=== PATIENT | female | born 1950 | race Caucasian/White ===

== ENCOUNTER 2017-04-22 13:54 | Emergency (ER) | payer OTHER, MEDICAID ==
--- NOTE | 2017-04-22 14:31 | EDPHY ---
H & P Stated Complaint: sent by pcp for prbc infusion -anemia, fatigue Time Seen by Provider: 04/22/17 14:31 - Medical/Surgical History Hx Asthma: No Hx Chronic Respiratory Disease: No Hx Diabetes: No Hx Cardiac Disease: No Hx Renal Disease: No Hx Cirrhosis: No Hx Alcoholism: No Hx HIV/AIDS: No Hx Splenectomy or Spleen Trauma: No Other PMH: Norma, x2, gastric bypass, anemia, tonsillectomy - Social History Smoking Status: Former smoker Constitutional: Initial Vital Signs Temperature (C) 37.0 C 04/22/17 13:58 Heart Rate 91 04/22/17 13:58 Respiratory Rate 16 04/22/17 13:58 Blood Pressure 137/74 H 04/22/17 13:58 O2 Sat (%) 95 04/22/17 13:58 O2 Delivery Mode Room Air Allergies/Adverse Reactions: statins Allergy (Intermediate, Uncoded 01/17/16 20:04) Other-Enter Comments HORMONES Allergy (Uncoded 01/17/16 20:04) Home Medications: Medication Instructions Recorded traZODone [traZODONE 50MG (*)] 50 - 100 mg PO HS PRN 04/17/14 Diazepam [Valium 10 MG (*)] 10 mg PO DAILY PRN 01/04/16 Furosemide [Lasix 20 MG (*)] 20 mg PO DAILY PRN 01/04/16 Sertraline HCl [Zoloft 100mg (*)] 200 mg PO DAILY 01/04/16 fentaNYL [Duragesic 100 MCG Patch 100 mcg TD Q72H 01/04/16 (*)] Iron/Vit C/Docusate [Steve-Sequels 1 each PO BID #0 tab.er 01/06/16 65 mg (*)] HYDROmorphone HCL [Dilaudid 4 mg 4 mg PO Q6H PRN #10 tab 01/18/16 (*)] Medical Decision Making ED Course/Re-evaluation: CHIEF COMPLAINT: HISTORY OF PRESENT ILLNESS: must have 4 elements: Location, Quality, Severity , Duration, Timing, Context, Modifying Factors, Associated Signs and Symptoms REVIEW OF SYSTEMS: A 10 point review of systems was performed and is negative with the exception of the elements mentioned in the history of present illness. PHYSICAL EXAM: HR, BP, O2 Sat, RR. Temp noted General Appearance: Alert, well hydrated, appropriate, and non-toxic appearing. Head: Atraumatic without scalp tenderness or obvious injury Eyes: Pupils equal, round, reactive to light and accommodation, EOMI, no trauma , no injection. Ears: Clear bilaterally, no perforation, normal landmarks Nose: Atraumatic, no rhinorrhea, clear. Throat: There is no erythema or exudates, no lesions, normal tonsils, mucus membranes moist. Neck: Supple, 2+ carotid upstroke, nontender, no lymphadenopathy. Respiratory: No retractions, no distress, no wheezes, and no accessory muscle use. Lungs are clear to auscultation bilaterally. Cardiovascular: Regular rate and rhythm, no murmurs, rubs, or gallops. Bilateral carotid, radial, dorsalis pedis, and posterior tibial pulses intact. Good capillary refill all extremities. Gastrointestinal: Abdomen is soft, nontender, non-distended, no masses, no rebound, no guarding, no peritoneal signs. Musculoskeletal: Normal active ROM of all extremities, atraumatic. Neurological: Alert, appropriate, and interactive. The patient has normal DTRs and non-focal cranial nerves, motor, sensory, and cerebellar exam. Skin: No rashes, good turgor, no nodules on palpation. Past medical history: Past surgical history: Family history: Social history: DIAGNOSTICS/PROCEDURES/CRITICAL CARE TIME: DIFFERENTIAL DIAGNOSIS: MEDICAL DECISION MAKING: Departure - Departure Referrals: Monalisa Foreman MD [Primary Care Provider] - As per Instructions Report Scribed for: Ren Mello Report Scribed by: Katherine Quan Date of Report: 04/22/17 Time of Report: 14:39
--- NOTE | 2017-04-22 15:10 | EDPHY ---
H & P Time Seen by Provider: 04/22/17 14:31 HPI/ROS: Chief complaint. Needs transfusion HPI. 66-year-old female sent by her physician at [facility] for transfusion. The patient has chronic anemia. Last transfusion was in 2014. She has had extensive workup including colonoscopy that apparently show she is not losing blood but just not producing blood. She complains of generalized weakness, shortness of breath with exertion. Also dizzy on walking. Denies chest pain. No abdominal pain no occasionally she has some left upper quadrant abdominal discomfort. Apparently labs at [facility] seen a today showed a low hematocrit. However her blood work is not in our lab in she did not bring any lab work with her. ROS Constitutional. Generalized weakness Eyes. no problems with vision ENT. no sore throat, no nasal drainage Cardiovascular. no chest pain Respiratory. Dyspnea on exertion Abdominal. no abdominal pain, no nausea/vomiting, no diarrhea . no problems urinating MS. no calf pain/swelling, no neck/back pain, no joint pain Skin. no rash Lymph. no swollen glands Neuro. Difficulty walking secondary to fatigue Past Medical/Surgical History: Past medical history significant for cholecystectomy, , gastric bypass , chronic anemia, tonsillectomy Social History: Single, nonsmoker, no alcohol Smoking Status: Former smoker Physical Exam: General Appearance: Alert well-developed female mild distress vital signs are stable Eyes: Pupils equal and round no pallor or injection. ENT, Mouth: Mucous membranes are moist. Respiratory: There are no retractions, lungs are clear to auscultation. Cardiovascular: Regular rate and rhythm. Gastrointestinal: Abdomen is soft and nontender, no masses, bowel sounds normal. Neurological: Awake and alert, sensory and motor exams grossly normal. Skin: Warm and dry, no rashes. Musculoskeletal: Neck is supple nontender. Extremities symmetrical, full range of motion. Psychiatric: Patient is oriented X 3, there is no agitation. Constitutional: Initial Vital Signs Temperature (C) 37.0 C 04/22/17 13:58 Heart Rate 91 04/22/17 13:58 Respiratory Rate 16 04/22/17 13:58 Blood Pressure 137/74 H 04/22/17 13:58 O2 Sat (%) 95 04/22/17 13:58 O2 Delivery Mode Room Air Allergies/Adverse Reactions: statins Allergy (Intermediate, Uncoded 01/17/16 20:04) Other-Enter Comments HORMONES Allergy (Uncoded 01/17/16 20:04) Home Medications: Medication Instructions Recorded traZODone [traZODONE 50MG (*)] 50 - 100 mg PO HS PRN 04/17/14 Diazepam [Valium 10 MG (*)] 10 mg PO DAILY PRN 01/04/16 Furosemide [Lasix 20 MG (*)] 20 mg PO DAILY PRN 01/04/16 Sertraline HCl [Zoloft 100mg (*)] 200 mg PO DAILY 01/04/16 fentaNYL [Duragesic 100 MCG Patch 100 mcg TD Q72H 01/04/16 (*)] Iron/Vit C/Docusate [Steve-Sequels 1 each PO BID #0 tab.er 01/06/16 65 mg (*)] HYDROmorphone HCL [Dilaudid 4 mg 4 mg PO Q6H PRN #10 tab 01/18/16 (*)] Medical Decision Making - Diagnostics EKG Interpretation: EKG interpreted by shows normal sinus rhythm normal interval and axis. QRS is normal. There is no significant ST elevation or depression. There is no arrhythmia. The rate is 75. No significant change from previous EKG April 2014 Imaging Results: Imaging Impressions Chest X-Ray 04/22/17 15:36 Impression: Negative portable chest. Chest/Thorax CTA 04/22/17 16:48 Impression: 1. No pulmonary embolism to the segmental level. 2. Cardiomegaly. 3. Additional findings, as above. Dr. Otoole discussed these findings by telephone with TAYE SOTELO on 2017 at 17:22 hours. Chest x-ray interpreted by me is normal CT angiogram chest shows no evidence of pulmonary embolus. Reviewed by me and discussed with Dr. Otoole Procedures: IV normal saline ED Course/Re-evaluation: I consulted discussed case with Dr. Foreman and we discussed blood level and hematocrit of 30.1. She agrees the patient does not require blood transfusion at this point. 4:45 p.m. patient is re-evaluated stable. She and I discussed laboratory evaluation elevated D-dimer. Indications are shortness of breath especially with exertion, normal chest x-ray, elevated D-dimer. She agrees to CT angiogram chest Re-evaluation again at 6:00 p.m.. Patient is stable. She and I discussed CT results. We discussed criteria for return treatment plan and importance of follow-up and further evaluation. She expresses understanding and agreement Differential Diagnosis: Patient presented to the emergency department being sent to the emergency department for admission for blood transfusion. She had no lab work with her and repeat blood work in the emergency department showed a hematocrit of 30.1 not needing transfusion. The patient then tells me she has been shortness of breath with exertion and some dizziness with exertion. Workup included cardiac and pulmonary evaluation. She had an elevated D-dimer though a normal chest x- ray. CT scan shows no evidence for pulmonary embolus. Source of dyspnea on exertion is not identified. Her vital signs are stable. I think that she can be safely treated as an outpatient. - Data Points Laboratory Results: Laboratory Results 04/22/17 14:41 04/22/17 14:41 04/22/17 04/22/17 04/22/17 16:07 16:07 14:41 WBC RBC Hgb Hct MCV MCH MCHC RDW Plt Count MPV Neut % (Auto) Lymph % (Auto) [place] % (Auto) Eos % (Auto) Baso % (Auto) Nucleat RBC Rel Count Absolute Neuts (auto) Absolute Lymphs (auto) Absolute Monos (auto) Absolute Eos (auto) Absolute Basos (auto) Absolute Nucleated RBC Immature Gran % Immature Gran # Platelet Estimate Polychromasia Hypochromasia Microcytic Cells Tear Drop Cells Elliptocytes D-Dimer 0.92 ug/mLFEU H ug/mLFEU (0.00-0.50) Sodium Potassium Chloride Carbon Dioxide Anion Gap BUN Creatinine Estimated GFR Glucose Calcium Troponin I < 0.012 ng/mL ng/mL (0.000-0.034) NT-Pro-B Natriuret Pep 139 pg/mL H pg/mL (0-125) Patient ABO/Rh A POSITIVE Antibody Screen NEGATIVE 04/22/17 04/22/17 14:41 14:41 WBC 3.70 10^3/uL L 10^3/uL (3.80-9.50) RBC 3.92 10^6/uL L 10^6/uL (4.18-5.33) Hgb 8.5 g/dL L g/dL (12.6-16.3) Hct 30.1 % L % (38.0-47.0) MCV 76.8 fL L fL (81.5-99.8) MCH 21.7 pg L pg (27.9-34.1) MCHC 28.2 g/dL L g/dL (32.4-36.7) RDW 18.5 % H % (11.5-15.2) Plt Count 304 10^3/uL 10^3/uL (150-400) MPV 10.6 fL fL (8.7-11.7) Neut % (Auto) 51.9 % % (39.3-74.2) Lymph % (Auto) 40.5 % % (15.0-45.0) [place] % (Auto) 4.9 % % (4.5-13.0) Eos % (Auto) 1.6 % % (0.6-7.6) Baso % (Auto) 0.8 % % (0.3-1.7) Nucleat RBC Rel Count 0.0 % % (0.0-0.2) Absolute Neuts (auto) 1.92 10^3/uL 10^3/uL (1.70-6.50) Absolute Lymphs (auto) 1.50 10^3/uL 10^3/uL (1.00-3.00) Absolute Monos (auto) 0.18 10^3/uL L 10^3/uL (0.30-0.80) Absolute Eos (auto) 0.06 10^3/uL 10^3/uL (0.03-0.40) Absolute Basos (auto) 0.03 10^3/uL 10^3/uL (0.02-0.10) Absolute Nucleated RBC 0.00 10^3/uL 10^3/uL (0-0.01) Immature Gran % 0.3 % % (0.0-1.1) Immature Gran # 0.01 10^3/uL 10^3/uL (0.00-0.10) Platelet Estimate ADEQUATE (ADEQ) Polychromasia 1+ H Hypochromasia 1+ H Microcytic Cells 1+ H Tear Drop Cells 1+ H Elliptocytes 1+ H D-Dimer Sodium 141 mEq/L mEq/L (135-145) Potassium 4.0 mEq/L mEq/L (3.5-5.2) Chloride 106 mEq/L mEq/L (97-110) Carbon Dioxide 21 mEq/l L mEq/l (22-31) Anion Gap 14 mEq/L mEq/L (8-16) BUN 14 mg/dL mg/dL (7-23) Creatinine 0.9 mg/dL mg/dL (0.6-1.0) Estimated GFR > 60 Glucose 109 mg/dL H mg/dL (70-100) Calcium 9.5 mg/dL mg/dL (8.5-10.4) Troponin I NT-Pro-B Natriuret Pep Patient ABO/Rh Antibody Screen Medications Given: Discontinued Medications Sodium Chloride (Ns) 500 mls @ 1,000 mls/hr IV EDNOW ONE PRN Reason: Protocol Stop: 04/22/17 17:16 Last Admin: 04/22/17 17:26 Dose: 500 mls Departure - Departure Disposition: Home, Routine, Self-Care Clinical Impression: Anemia Qualifiers: Anemia type: unspecified type Qualified Code(s): D64.9 - Anemia, unspecified Condition: Good Instructions: Pancreatitis (ED), Anemia (ED) Additional Instructions: Continue your regular medications. Return for worsening symptoms. Call Dr. Foreman tomorrow to arrange follow-up and further evaluation. Referrals: Monalisa Foreman MD [Primary Care Provider] - 2-3 days, call for appt.
[2017-04-22 15:44] LABS: PLATELET COUNT 304 10^3/uL (150-400)
[2017-04-22 16:07] VITALS: RESP 15; O2SAT 97
--- NOTE | 2017-04-22 16:17 | CPEKG ---
Heart Rate: 75 RR Interval: 800 P-R Interval: 172 QRSD Interval: 78 QT Interval: 396 QTC Interval: 443 P [place]: 60 QRS [place]: 36 T Wave [place]: 39 EKG Severity - BORDERLINE ECG - EKG Impression: SINUS RHYTHM EKG Impression: CONSIDER ANTERIOR INFARCT Electronically Signed By: Teofilo Culver 22-Apr-2017 17:03:39
[2017-04-22] MEDS ORDERED: NS 500 ML IV ONE (16:47)
[2017-04-22] MEDS ORDERED: IOPAMIDOL (ISOVUE 370) 100 ML BTL IV ONE ×2 (16:50→16:53)
[2017-04-22 18:14] VITALS: BP 147/75; PULSE 75; TEMP 97.9
== END 2017-04-22 18:17 | disposition home or self-care (01) ==
DX: D64.9 Anemia, unspecified (principal); E86.9 Volume depletion, unspecified; Z87.891 Personal history of nicotine dependence
CPT/HCPCS: 71045; 71275; 93005; 96360; 99285; Q9967

== ENCOUNTER 2018-07-10 18:02 | Emergency (ER) | payer OTHER, MEDICAID ==
[2018-07-10 18:11] VITALS: BP 105/67
--- NOTE | 2018-07-10 18:11 | EDPHY ---
H & P Time Seen by Provider: 07/10/18 18:07 HPI/ROS: Chief complaint. Fall, wrist injury HPI. Patient is a 67-year-old female trip and fall at home landing on outstretched left wrist. Sustained injury to the left wrist. Did not strike her head or lose consciousness. No neck pain or back pain. No chest pain or shortness of breath. Pain to the left wrist. Patient is right handed. Increased pain with range of motion of the left wrist. No previous injury to the left wrist ROS 10 systems were reviewed and negative with the exception of the elements mentioned in the history of present illness Past Medical/Surgical History: Cholecystectomy, gastric bypass, anemia, tonsillectomy Social History: Single, nonsmoker, no alcohol Smoking Status: Former smoker Physical Exam: General Appearance: Alert pleasant well-developed female mild distress vital signs are stable Eyes: Pupils equal and round no pallor or injection. ENT, no hemotympanum or Wilburn sign. Slight bruise to the left side lower lip and left inner lip without laceration. Respiratory: There are no retractions, lungs are clear to auscultation. Cardiovascular: Regular rate and rhythm. Gastrointestinal: Abdomen is soft and nontender, no masses, bowel sounds normal. Neurological: Awake and alert, sensory and motor exams grossly normal. Skin: Warm and dry, no rashes. Musculoskeletal: Neck is supple nontender. No T, L, S spine tenderness Extremities left wrist is diffusely swollen. No skin violation. Tenderness to palpation distal radius and ulna. Distal motor vascular sensitivity to be intact Psychiatric: Patient is oriented X 3, there is no agitation. Constitutional: Initial Vital Signs Temperature (C) 36.8 C 07/10/18 18:07 Heart Rate 89 07/10/18 18:07 Respiratory Rate 16 07/10/18 18:07 Blood Pressure 105/67 07/10/18 18:07 O2 Sat (%) 92 07/10/18 18:07 O2 Delivery Mode Room Air Allergies/Adverse Reactions: statins Allergy (Intermediate, Uncoded 07/10/18 18:05) Other-Enter Comments HORMONES Allergy (Uncoded 07/10/18 18:05) Home Medications: Medication Instructions Recorded traZODone [traZODONE 50MG (*)] 50 - 100 mg PO HS PRN 04/17/14 Furosemide [Lasix 20 MG (*)] 20 mg PO DAILY PRN 01/04/16 Sertraline HCl [Zoloft 100mg (*)] 200 mg PO DAILY 01/04/16 Iron/Vit C/Docusate [Steve-Sequels 1 each PO BID #0 tab.er 01/06/16 65 mg (*)] Cyclobenzaprine 07/10/18 Hydrocodone/APAP 5/325 [[place] 1 each PO Q4-6PRN PRN #14 tab 07/10/18 5/325 (*)] Medical Decision Making - Diagnostics Imaging Results: Imaging Impressions Wrist X-Ray 07/10/18 18:11 Impression: Colles' fracture. Scapholunate ligament instability. X-ray left wrist shows fracture to distal radius and ulna. Alignment is fairly good. Procedures: Patient is placed in sugar-tong splint. Post splint application reviewed by me shows good anatomic position and distal motor vascular sensitivity to be intact ED Course/Re-evaluation: Re-evaluation at 7:00 p.m.. Patient and I discussed imaging study results, treatment plan including criteria for return importance of follow-up and further evaluation. She expresses understanding and agreement Differential Diagnosis: I considered fracture, dislocation, sprain Departure - Departure Disposition: Home, Routine, Self-Care Clinical Impression: Wrist fracture, left Qualifiers: Encounter type: initial encounter Fracture type: closed Qualified Code(s): S62.102A - Fracture of unspecified carpal bone, left wrist, initial encounter for closed fracture Condition: Good Instructions: Wrist Fracture in Adults (ED) Additional Instructions: Ice and elevation next 24-48 hours to sore area of wrist Tylenol or hydrocodone as needed for pain. Hydrocodone contain small amount of Tylenol so do not take Tylenol + hydrocodone Call tomorrow morning to Dr. Tai, orthopedist, for further evaluation and care Return sooner for worsening symptoms Referrals: Monalisa Foreman MD [Primary Care Provider] - As per Instructions Kyrie Tai MD [Medical Doctor] - As per Instructions Prescriptions: Hydrocodone/APAP 5/325 [[place] 5/325 (*)] 1 each PO Q4-6PRN PRN #14 tab PRN Reason: Pain, Moderate
[2018-07-10] MEDS ORDERED: HYDROCOD/APAP 5/325 PREPACK#6 BTL TAKEHOME ONE (18:57)
== END 2018-07-10 19:23 | disposition home or self-care (01) ==
LOC: EDUNIT#
PROC: 2W3DX1Z Immobilization of Left Lower Arm using Splint (ICD-10-PCS; principal; 2018-07-10)
DX: S62.102A Fracture of unspecified carpal bone, left wrist, initial encounter for closed fracture (principal); W19.XXXA Unspecified fall, initial encounter; Y92.009 Unspecified place in unspecified non-institutional (private) residence as the place of occurrence of the external cause